=== PATIENT | female | born 1965 | race Caucasian/White ===

== ENCOUNTER → 2017-11-18 | Outpatient (CLI) | payer OTHER ==
[~2017-11-18] MED LIST: ACYCLOVIR 200200 MG PO; ACYCLOVIR 400400 MG PO; ELAVIL PO; GABAPENTIN100 MG PO; HYDROXYCHLOROQ200 M1 PO; MOBIC7.5 MG PO; NEURONTIN 300300 M1 PO; NORCO 5-325 TA1 EACH PO; ROBAXIN 750 MG750 M1 PO; XANAX 0.5 MG0.5 MG PO; ZOFRAN ODT4 MG PO; ZOFRAN4 MG PO
== END ==
LOC: M.ULTRA 07:15
DX: G95.9 Disease of spinal cord, unspecified (principal)

== ENCOUNTER → 2019-02-02 | Outpatient (CLI) | payer OTHER | LOC: M.CT 14:18 | DX: R10.32 Left lower quadrant pain (principal); Z98.891 History of uterine scar from previous surgery; Z98.890 Other specified postprocedural states; Z87.19 Personal history of other diseases of the digestive system; Z90.49 Acquired absence of other specified parts of digestive tract ==